=== PATIENT | female | born 1975 | race Caucasian/White ===

== ENCOUNTER → 2020-09-25 | Outpatient (CLI) | payer OTHER ==
[~2020-09-25] MED LIST: ACET325T14 PO; BUPR300T49 PO; IBUP-1623 PO
[2020-09-25 15:16] LABS: BASOPHILS % (AUTO) 1 % (0-1); EOSINOPHILS % (AUTO) 0 % (1-7); LYMPHOCYTES % (AUTO) 21 % (22-44); MEAN CORPUSCULAR HEMOGLOBIN 27.5 pg (27.0-34.8); MEAN PLATELET VOLUME 7.4 fL (7.4-10.4); MONOCYTES % (AUTO) 6 % (2-9); NEUTROPHILS % (AUTO) 73 % (42-75); PLATELET COUNT 321 x10^3/uL (130-400); RED BLOOD COUNT 4.41 x10^6/uL (3.82-5.3); RED CELL DISTRIBUTION WIDTH 15.8 % (9.6-15.2)
[2020-09-25 15:18] LABS: ALANINE AMINOTRANSFERASE 14 U/L (12-78); ALBUMIN 4.1 g/dL (3.4-5.0); ANION GAP 4 mmol/L (5-15); CALCIUM 9.1 mg/dL (8.5-10.1); CHLORIDE 110 mmol/L (98-107); CREATININE 0.69 mg/dL (0.55-1.02)
[2020-09-25 15:23] LABS: ALKALINE PHOSPHATASE 37 U/L (45-117); BILIRUBIN,TOTAL 0.5 mg/dL (0.2-1.0); TOTAL PROTEIN 7.2 g/dL (6.4-8.2)
[2020-09-25 15:33] LABS: MD NO
== END | disposition home or self-care (01) ==
LOC: STAR 14:08
PROVIDERS: ATTEND Obstetrics & Gynecology
DX: Z01.812 Encounter for preprocedural laboratory examination (principal); Z20.828 Contact with and (suspected) exposure to other viral communicable diseases; R32 Unspecified urinary incontinence; D06.9 Carcinoma in situ of cervix, unspecified
CPT/HCPCS: 36415; 80053; 84703; 85025; 87635

== ENCOUNTER 2020-10-01 13:09 | Observation (INO) | payer OTHER ==
[~2020-10-01] VITALS: Ht 172.7 cm; Wt 67.8 kg
[2020-10-01] MEDS ORDERED: CHLORHEXIDINE 15 ML UDC ONE (13:24)
[2020-10-01] MEDS ORDERED: CHLORHEXIDINE 15 ML UDC MM ONE (13:30)
[2020-10-01] MEDS ORDERED: LACTATED RINGERS 1,000 ML IV SCH (13:30)
[2020-10-01 13:40] LABS: HCG UR SG 1.014 (1.003-1.030)
[2020-10-01] MEDS ORDERED: ACET-1600 PO (13:40)
[2020-10-01] MEDS ORDERED: BUPIVACAINE/PF 0.25% ONE (14:39)
[2020-10-01] MEDS ORDERED: FLUORESCEIN SODIUM 500 MG/5 ML ONE (14:39)
[2020-10-01] MEDS ORDERED: NEOMY/POLYMYXIN B GU IRR. 1 ML ONE (14:39)
[2020-10-01] MEDS ORDERED: EPINEPHRINE 1 MG/ML, 1ML ONE (14:39)
[2020-10-01] MEDS ORDERED: MIDAZOLAM 1 MG/ML, 2ML ONE (15:11)
[2020-10-01] MEDS ORDERED: FENTANYL PF 250 MCG/5ML ONE (15:11)
[2020-10-01] MEDS ORDERED: SUGAMMADEX 200 MG/2 ML IVPush ONE (15:17)
[2020-10-01] MEDS ORDERED: ROCURONIUM 10MG/ML,5ML ONE (15:17)
[2020-10-01] MEDS ORDERED: CEFAZOLIN 1,000 MG ONE (15:17)
[2020-10-01] MEDS ORDERED: PROPOFOL 10 MG/ML, 20ML ONE (15:17)
[2020-10-01] MEDS ORDERED: DEXAMETHASONE 4 MG/ML, 1ML ONE (15:17)
[2020-10-01] MEDS ORDERED: KETOROLAC 30 MG/1 ML ONE (15:17)
[2020-10-01] MEDS ORDERED: SUCCINYLCHOLINE 20 MG/ML, 10ML ONE (15:17)
[2020-10-01] MEDS ORDERED: FENTANYL PF 100 MCG/2ML ONE (18:54)
[2020-10-01] MEDS ORDERED: HYDROmorphone 1 MG/ML, 1ML INJ ONE (18:54)
[2020-10-01] MEDS ORDERED: OXYcodone 5 MG/5 ML ORAL.SOL UDC ONE (18:55)
[2020-10-01] MEDS: HYDROmorphone 1 MG/ML, 1ML INJ IV PRN ×2 (18:58→19:07)
[2020-10-01] MEDS ORDERED: DIAZEPAM 5 MG/ML, 2ML IV PRN ×2 (19:00)
[2020-10-01] MEDS ORDERED: METOCLOPRAMIDE 5 MG/ML, 2ML IV PRN (19:00)
[2020-10-01] MEDS ORDERED: MEPERIDINE/PF 25MG/0.5ML IVPush PRN (19:00)
[2020-10-01] MEDS ORDERED: hydrALAzine 20 MG/ML, 1ML IV PRN (19:00)
[2020-10-01] MEDS ORDERED: FENTANYL PF 100 MCG/2ML IV PRN (19:00)
[2020-10-01] MEDS ORDERED: ALBUTEROL SULFATE 2.5 MG/3 ML NPPB PRN (19:00)
[2020-10-01] MEDS ORDERED: OXYcodone 5 MG/5 ML ORAL.SOL UDC PO PRN (19:00)
[2020-10-01] MEDS ORDERED: ONDANSETRON 2MG/ML, 2ML IVPush PRN (19:00)
[2020-10-01] MEDS ORDERED: LABETALOL 5MG/ML, 20ML IV PRN (19:00)
[2020-10-01] MEDS ORDERED: KETOROLAC 30 MG/1 ML IV PRN (19:00)
[2020-10-01] MEDS ORDERED: GENTAMICIN 80 MG in SODIUM CHLORIDE 0.9% 50 ML IV ONE (19:10)
[2020-10-01] MEDS ORDERED: GENTAMICIN 80 MG/2 ML IPPB ONE (19:30)
[2020-10-01] MEDS ORDERED: PROMETHAZINE 25 MG/ML, 1ML ONE (19:35)
[2020-10-01] MEDS: PROMETHAZINE 25 MG/ML, 1ML IV PRN ×2 (19:40→19:42)
[2020-10-01] MEDS ORDERED: ONDANSETRON 2MG/ML, 2ML ONE (20:06)
[2020-10-01] MEDS ORDERED: METOCLOPRAMIDE 5 MG/ML, 2ML ONE (20:21)
[2020-10-01 20:30] LABS: BASOPHILS % (AUTO) 0 % (0-1); EOSINOPHILS % (AUTO) 0 % (1-7); LYMPHOCYTES % (AUTO) 11 % (22-44); MEAN CORPUSCULAR HEMOGLOBIN 27.1 pg (27.0-34.8); MEAN CORPUSCULAR HGB CONC 32.7 g/dL (32.4-35.8); MEAN PLATELET VOLUME 7.1 fL (7.4-10.4); MONOCYTES % (AUTO) 4 % (2-9); NEUTROPHILS % (AUTO) 85 % (42-75); PLATELET COUNT 233 x10^3/uL (130-400); RED BLOOD COUNT 3.72 x10^6/uL (3.82-5.3); RED CELL DISTRIBUTION WIDTH 15.3 % (9.6-15.2)
[2020-10-01 20:36] LABS: ANION GAP 6 mmol/L (5-15); CALCIUM 7.6 mg/dL (8.5-10.1); CHLORIDE 112 mmol/L (98-107); CREATININE 0.58 mg/dL (0.55-1.02)
[2020-10-01] MEDS ORDERED: SENNA/DOCUSATE TABLET PO SCH (21:00)
[2020-10-01] MEDS ORDERED: ZOLPIDEM 5MG TABLET PO PRN (21:00)
[2020-10-01 21:02] LABS: MD SCAN
[2020-10-01] MEDS ORDERED: PROMETHAZINE 25 MG/ML, 1ML IM PRN (21:30)
[2020-10-01] MEDS ORDERED: DIAZEPAM 5 MG/ML, 2ML ONE (21:43)
[2020-10-01] MEDS: DOCUSATE 100 MG CAPSULE PO SCH (22:59)
[2020-10-01] MEDS ORDERED: morphine SULFATE 10 MG/ML, 1ML IV PRN (23:00)
[2020-10-01] MEDS: WELLBUTRIN 300 MG MC SCH (23:00)
[2020-10-01] MEDS ORDERED: D5%-LACTATED RINGERS 1,000 ML IV SCH (23:00)
[2020-10-01] MEDS ORDERED: ACETAMINOPHEN 650 MG SUPP PR PRN (23:00)
[2020-10-01] MEDS ORDERED: ACETAMINOPHEN 325 MG TABLET PO PRN (23:00)
[2020-10-01] MEDS ORDERED: MEPERIDINE/PF 100 MG/ML IM PRN (23:00)
[2020-10-01] MEDS ORDERED: ONDANSETRON 2MG/ML, 2ML IV PRN (23:00)
[2020-10-01] MEDS: OXYcodone/APAP 5/325MG TABLET PO PRN (23:40)
[2020-10-02 03:35] VITALS: BP 98/61
[2020-10-02] MEDS: IBUPROFEN 600 MG TABLET PO SCH ×3 (06:30→15:21)
[2020-10-02 06:31] LABS: BASOPHILS % (AUTO) 0 % (0-1); EOSINOPHILS % (AUTO) 0 % (1-7); LYMPHOCYTES % (AUTO) 13 % (22-44); MEAN CORPUSCULAR HEMOGLOBIN 27.9 pg (27.0-34.8); MEAN CORPUSCULAR HGB CONC 33.5 g/dL (32.4-35.8); MEAN PLATELET VOLUME 6.6 fL (7.4-10.4); MONOCYTES % (AUTO) 5 % (2-9); NEUTROPHILS % (AUTO) 82 % (42-75); PLATELET COUNT 246 x10^3/uL (130-400); RED BLOOD COUNT 3.45 x10^6/uL (3.82-5.3)
[2020-10-02] MEDS: WELLBUTRIN 300 MG MC SCH ×2 (06:32→15:00)
[2020-10-02 06:33] LABS: MD NO
[2020-10-02] MEDS: OXYcodone/APAP 5/325MG TABLET PO PRN ×3 (06:34→15:22)
[2020-10-02 06:41] LABS: CALCIUM 7.6 mg/dL (8.5-10.1); CHLORIDE 114 mmol/L (98-107)
[2020-10-02 06:42] VITALS: BP 90/53
[2020-10-02 06:45] LABS: ANION GAP 4 mmol/L (5-15); CREATININE 0.65 mg/dL (0.55-1.02)
[2020-10-02] MEDS: DOCUSATE 100 MG CAPSULE PO SCH (08:36)
[2020-10-02] MEDS: SIMETHICONE 80 MG CHEW TAB PO SCH ×2 (08:37→15:22)
[2020-10-02] MEDS ORDERED: D5%-LACTATED RINGERS 1,000 ML IV SCH (08:42)
[2020-10-02] MEDS ORDERED: ACETAMINOPHEN 500 MG TABLET PO SCH (09:00)
[2020-10-02] MEDS ORDERED: NITROFURANTOIN (MACROBID) 100 MG CAPSULE PO ONE (09:00)
[2020-10-02] MEDS ORDERED: OXYC-302 PO (10:40)
[2020-10-02] MEDS ORDERED: NITR100C56 PO (10:40)
[2020-10-02 13:15] VITALS: BP 110/62
== END 2020-10-02 15:50 | disposition home or self-care (01) ==
LOC: OUT 13:09 → 4NE 21:28 → DCLOUNGE 10-02 15:43
PROVIDERS: ADMIT Pediatrics Neonatal-Perinatal Medicine; ATTEND Obstetrics & Gynecology
DX: D06.9 Carcinoma in situ of cervix, unspecified (principal); N39.3 Stress incontinence (female) (male); N83.291 Other ovarian cyst, right side; Z86.001 Personal history of in-situ neoplasm of cervix uteri; Z79.899 Other long term (current) drug therapy
CPT/HCPCS: 36415; 51600; 57200; 57288; 58260; 74430; 80048; 81025; 85025; 86850; 86900; 88307; 96361; 96374; C1771; G0378; J0171; J0330; J0690; J1100; J1170; J1580; J1885; J2250; J2405; J2550; J2704; J2765; J3010; J3360; J7120; J7121; Q9958